=== PATIENT | female | born 1995 | race Caucasian/White ===

== ENCOUNTER 2016-06-26 18:06 | Emergency (ER) | payer OTHER ==
--- NOTE | 2016-06-26 19:59 | ED CLINICAL REPORT ---
Clinical Report - Physicians/Mid Levels [facility] [address] [place] [address] 06/26/2016 18:08 Patient: PAOLO CADET Time Seen: 18:31; initial patient contact, initial documentation, patient care assumed. Arrived- By private vehicle. Historian- patient. HISTORY OF PRESENT ILLNESS Chief Complaint: VOMITING. This started about 2 - 3 days ago and is still present. No recent travel. She has had nausea. She has had mild vomiting. The vomiting has occurred only once. No bilious emesis, feculent emesis, blood-tinged emesis, coffee-grounds emesis or frankly bloody emesis. No unusually dark emesis. No diarrhea, black stools, bloody stools, abdominal pain or constipation. No flank pain, history of possible bad food exposure or change in routine. Has not recently been camping or on antibiotics. She has had contact with a sick family member. Symptoms of the sick contact include vomiting. They have had similar symptoms. The illness is described as mild. (concerned she is , late on period, and home test was neg and another one was pos, and she has breast tenderness that started about the same time). Similar symptoms previously: None. Recent medical care: Not recently seen/assessed. REVIEW OF SYSTEMS No fever, difficulty with urination, dark urine, chest pain or difficulty breathing. Denies current . All systems otherwise negative, except as recorded above. PAST HISTORY Negative. SOCIAL HISTORY Never smoker. No alcohol use or drug use. No recent travel. Is a local resident. FAMILY HISTORY Negative. ADDITIONAL NOTES The nursing notes have been reviewed with agreement regarding the chief complaint, HPI, ROS, PMH and patient medications and allergies. PHYSICAL EXAM Vital Signs: 06/26/2016 18:22 BP: 136/66. HR: 80. RR: 16. O2 saturation: 100%. Temp: 97.9 F. Have been reviewed as normal and appear to be correct. Appearance: Alert. Oriented X3. No acute distress. Eyes: Pupils equal, round and reactive to light. Eyes normal inspection. ENT: Ears normal. Nose normal. Pharynx normal. Neck: Normal inspection. Neck supple. CVS: Normal heart rate and rhythm. Heart sounds normal. Pulses normal. Respiratory: No respiratory distress. Breath sounds normal. Abdomen: Soft and nontender. Bowel sounds normal. No organomegaly. No mass. Back: Normal inspection. Skin: Skin warm and dry. Normal skin color. No rash. Normal skin turgor. Extremities: Extremities exhibit normal ROM. No lower extremity edema. Neuro: Oriented X 3. No motor deficit. No sensory deficit. LABS, X-RAYS, AND EKG Laboratory Tests: UA-Culture if indicated: (CEM: 06/26/2016 18:25) ( MsgRcvd 06/26/2016 18:48) Final results Test Result Flag Units (Reference) URINE COLOR YELLOW URINE APPEARANCE CLEAR URINE GLUCOSE NEGATIVE (NEGATIVE) URINE BILIRUBIN NEGATIVE (NEGATIVE) URINE KETONE TRACE (NEGATIVE) URINE SPECIFIC GRAVITY 1.020 (1.010-1.030) URINE PH 7.0 (5.0-8.0) URINE PROTEIN NEGATIVE (NEGATIVE) URINE UROBILINOGEN 2.0 EU/dL (0.2-1.0) The urobilinogen reagent area may react with interferingsubstances known to react with Estefani's reagent such asp-aminosalicylic acid and sulfonamides. Atypical colorreactions may be obtained in the presence of highconcentrations of p-aminobenzoic acid. The absence ofurobilinogen cannot be determined with this test. URINE NITRITE NEGATIVE (NEGATIVE) URINE BLOOD NEGATIVE (NEGATIVE) URINE LEUK ESTERASE NEGATIVE (NEGATIVE) URINE RBC 0-1 rbc/hpf (0-1) URINE WBC 0-1 wbc/hpf (0-1) URINE EPITHELIAL CELLS 3-5 EPI/hpf (0-5) URINE BACTERIA NONE SEEN (NONE SEEN) URINE COMMENT CULT NOT INDICATED AMORPHOUS CRYSTALS 3+URINE CULTURES ARE SET-UP BASED ON THE FOLLOWING CRITERIA:POSITIVE NITRITEPOSITIVE LEUKOCYTE ESTERASEGREATER THAN 10 WHITE BLOOD CELLSMODERATE (2+) OR GREATER BACTERIA Urine: (CEM: 06/26/2016 18:25) ( MsgRcvd 06/26/2016 18:45) Final results Test Result Flag Units (Reference) URINE POSITIVE CBC w Diff: (CEM: 06/26/2016 18:55) ( MsgRcvd 06/26/2016 19:11) Final results Test Result Flag Units (Reference) WHITE BLOOD COUNT 8.0 K/uL (4.5-11.5) RED BLOOD COUNT 4.52 M/uL (4.00-5.20) HEMOGLOBIN 10.5 L gm/dL (12.0-16.0) HEMATOCRIT 33.6 L % (36.0-46.0) MEAN CELL VOLUME 74 L fL (80-100) MEAN CORPUSCULAR HGB 23 L pg (26-34) MEAN CORPUSCULAR HGB CONC 31 g/dL (31-37) RED CELL DISTRIBUTION WIDTH 19.2 H % (11.6-14.8) PLATELET COUNT 333 K/uL (150-400) NEUTROPHIL % 58.2 % (50-75) LYMPH % 33.4 % (25-40) MONO % 8.0 % (3-14) EOSINOPHIL % 0.4 % (0-4) BASOPHIL % 0 % (0-2) CMP: (CEM: 06/26/2016 18:55) ( MsgRcvd 06/26/2016 19:22) Final results Test Result Flag Units (Reference) GLUCOSE 98 mg/dL (70-110) BUN 13 mg/dL (7-18) CREATININE 0.7 mg/dL (0.6-1.3) Estimated GFR >60 mL/min Estimated GFR- >60 mL/min Note: Persistent reduction over 3 months in eGFR<60 mL/min/1.73 m2 defines CKD. Patients with eGFR values>=60 mL/min/1.73 m2 may also have CKD if evidence ofpersistent proteinuria. Additional information may be foundat www.kidney.org. SODIUM 139 mmol/L (136-145) POTASSIUM 4.1 mmol/L (3.5-5.1) CHLORIDE 105 mmol/L (98-107) CARBON DIOXIDE 25 mmol/L (21-32) CALCIUM 8.8 mg/dL (8.5-10.1) TOTAL PROTEIN 8.0 g/dL (6.4-8.2) ALBUMIN 3.9 g/dL (3.3-5.0) BILIRUBIN, TOTAL 0.8 mg/dL (0.0-1.0) ALKALINE PHOSPHATASE 79 U/L (46-116) AST (SGOT) 12 L U/L (15-37) ALT (SGPT) 23 U/L (12-78) . PROGRESS AND PROCEDURES Patient counseled in person regarding the patient's stable condition, test results and diagnosis. 19:43. Differential Diagnosis: I considered gastritis, peptic ulcer disease, ischemia, gastroesophageal reflux disease, gastroparesis, small bowel obstruction, colonic obstruction, colon cancer, gastroenteritis, cholecystitis, pancreatitis, viral syndrome, enterocolitis, urinary tract infection and hepatitis as a possible cause of vomiting in this patient. This is a partial list of diagnoses considered. Above considerations are based on history, physical exam and laboratory data. Differential diagnosis was discussed with patient. Disposition: Discharged home in good and unchanged condition (19:59). Condition: good and stable. CLINICAL IMPRESSION First trimester ; positive test in emergency department. INSTRUCTIONS Warnings: GENERAL WARNINGS: Return or contact your physician immediately if your condition worsens or changes unexpectedly, if not improving as expected, or if other problems arise. SPECIFICALLY, return if you develop pain in the abdomen, fever, the inability to keep fluids down, blood in vomitus, blood in diarrhea, fainting, lightheadedness or vaginal bleeding. Prescription Medications: Zofran 4 mg: Take 1 orally every six hours as needed for nausea/vomiting. Dispense ten (10). No refills. Substitution is permissible. vitamins: Take 1 orally every day. Dispense thirty (30). No refill. Understanding of the discharge instructions verbalized by patient. Follow-up with: Arsh Praks MD, Obstetrics/Gynecology, , [facility], [address] [place] [address] Follow up in about three days even if well. Call for an appointment. Summary of care provided to patient. (Electronically signed by May Giraldo A.R.N.P. 06/26/2016 22:48)
--- NOTE | 2016-06-26 19:59 | ED ORDER SUMMARY ---
..... Patient: PAOLO CADET OrderSheet [facility] VisitID: [id number] [place] [address] 21y, F Registration Date/Time: 06/26/2016 ORDER SHEET Weight: 89.3 kg (stated) Allergies: No Known Drug Allergy GENERAL ORDERS: UA-Culture if indicated Urgent (18:25 06/26/2016 EInderbitzen R.N. verbal order read back to Satish SU) (Ack 18:32 RKjere) (18:44 EInderbitzen R.N.) Urine Urgent (18:25 06/26/2016 EInderbitzen R.N. verbal order read back to Satish SU) (Ack 18:32 RKjere) (18:44 EInderbitzen R.N.) CBC w Diff Urgent (18:41 06/26/2016 HBivens A.R.N.P.) (Ack 18:46 RKjere) (18:55 LTapper) CMP Urgent (18:41 06/26/2016 HBivens A.R.N.P.) (Ack 18:46 RKaruga) (18:55 LTapper) MEDICATION ORDERS: Zofran ODT PO 4 mg (NOW) (18:41 06/26/2016 HBivens A.R.N.P.) (19:00 EInderbitzen R.N.) IV FLUIDS: ORDER SHEET NOTES: [Electronically signed by Steven Cui R.N. (20:17 06/26/2016)] [Electronically signed by May Giraldo.R.N.P. (22:48 06/26/2016)] [Electronically locked/signed by Steven Cui R.N. (20:17 06/26/2016)]
--- NOTE | 2016-06-26 19:59 | ED ORDER SUMMARY ---
..... Patient: PAOLO CADET OrderSheet [facility] VisitID: [id number] [place] [address] 21y, F Registration Date/Time: 06/26/2016 ORDER SHEET Weight: 89.3 kg (stated) Allergies: No Known Drug Allergy GENERAL ORDERS: UA-Culture if indicated Urgent (18:25 06/26/2016 EInderbitzen R.N. verbal order read back to Satish SU) (Ack 18:32 RKjere) (18:44 EInderbitzen R.N.) Urine Urgent (18:25 06/26/2016 EInderbitzen R.N. verbal order read back to Satish SU) (Ack 18:32 RKjere) (18:44 EInderbitzen R.N.) CBC w Diff Urgent (18:41 06/26/2016 HBivens A.R.N.P.) (Ack 18:46 RKjere) (18:55 LTapper) CMP Urgent (18:41 06/26/2016 HBivens A.R.N.P.) (Ack 18:46 RKaruga) (18:55 LTapper) MEDICATION ORDERS: Zofran ODT PO 4 mg (NOW) (18:41 06/26/2016 HBivens A.R.N.P.) (19:00 EInderbitzen R.N.) IV FLUIDS: ORDER SHEET NOTES: [Electronically signed by Steven Cui R.N. (20:17 06/26/2016)] [Electronically signed by May Giraldo.R.N.P. (22:48 06/26/2016)] [Electronically locked/signed by Steven Cui R.N. (20:17 06/26/2016)]
--- NOTE | 2016-06-26 19:59 | ED NURSING NOTES ---
Clinical Report - Nurses [facility] [place] [address] 06/26/2016 18:08 Patient: PAOLO CADET TRIAGE Triage time 18:19 Jun 26 2016. Acuity: LEVEL 3. Chief Complaint: ABDOMINAL PAIN. 18:22 06/26/16. SEPSIS SCREEN: Sepsis Screen: negative. Negative (no infection suspected/documented). --18:22 [place] Zhong R.N. 18:22 06/26/16. BP: 136/66. HR: 80. RR: 16. O2 saturation: 100%. Temp: 97.9 F. Pain level now 2/10. --18:22 [place] Zhong R.N. Weight: 89.3 kg stated. Height/Length: 64 inches Per Patient. BMI: 33.8. --18:18 Sugar Zhong R.N. Medications None. --18:20 Sugar Zhong R.N. Medication/allergy information source: the patient. --18:22 Sugar Zhong R.N. Allergies No Known Drug Allergy. --18:20 Sugar Zhong R.N. History Arrived by private vehicle. Historian: patient. Accompanied by family. Onset. (2 - 3 days). ( no bleeding. Possibly , Is sexually active, no contraception. has taken a few home tests with both positive and negative results). She has had nausea, vomiting, constipation and abdominal pain. No diarrhea or fever. Treatment JUVENILE DETENTION OFFICER: None. PAST MEDICAL HX: Last normal menstrual period- end of April. Sexual history - sexually active and engages in unprotected sex. No contraception. SOCIAL HX: Never smoker. No alcohol use or drug use. No recent travel. No known contact with a sick individual. ABUSE ASSESSMENT: No report of abuse. SELF HARM ASSESSMENT: A self harm assessment was performed. The patient answered "no" to the question "Have you recently felt down, depressed, or hopeless?", "Have you noticed less interest or pleasure in doing things?", "Do you have thoughts of harming or killing yourself?", "Are you here because you tried to hurt yourself?", "Have you ever tried to hurt yourself before today?", "Have you recently had thoughts about harming or killing others?" and "Do you have any dangerous items in your possession?". FALL RISK ASSESSMENT: Fall risk assessment completed. No fall risk identified. NUTRITIONAL RISK ASSESSMENT: The nutritional risk assessment revealed no deficiencies. FUNCTIONAL ASSESSMENT: Functional assessment: no impairments noted. LEARNING NEEDS ASSESSMENT: The learning needs assessment revealed no barriers. SKIN INTEGRITY ASSESSMENT: Skin integrity risk assessment completed. No skin integrity risk identified. --18:22 Sugar Zhong R.N. PROBLEMS: Weakness. --18:20 Sugar Zhong R.N. ADDITIONAL SURGERIES: no known surgeries. Interventions ID band on patient. --18:22 Sugar Zhong R.N. PHYSICAL ASSESSMENT 18:25 06/26/16. Ambulatory to room. GENERAL / NEURO / PSYCH: Alert. Oriented X 4. HEENT: Mucous membranes are pink. RESPIRATORY: Breath sounds within normal limits. CVS: Capillary refill less than 2 seconds. GI / : Abdomen soft. No rebound tenderness, abdominal distention, guarding or mass present in the abdominal region. No nausea noted. No emesis noted. SKIN: Skin is warm and dry. --18:25 Sugar Zhong R.N. NURSING PROGRESS NOTES 18:19 06/26/16. The initial plan of care for this patient includes an assessment with efforts to address the patient's anxiety; impairment of the gastrointestinal and genitourinary system. This plan of care was discussed with the patient. Patient gowned. Reassurance given. Two patient identifiers checked. Call light placed in reach. Side rails up x 1. Bed placed in lowest position. Brakes of bed on. Patient ready for evaluation. --18:24 [place] Zhong R.N. Checked patient name and birthdate: patient confirmed. Blood samples drawn from the right antecubital space with syringe and 23g butterfly by [employer] per protocol ; labeled in presence of the patient and sent to lab: rainbow set: cardiac enzymes (1st set). --18:56 Arnol Youssef 19:00 06/26/2016 Zofran ODT (Ondansetron) PO Oral Disintegrating Tablets 4 mg given. Allergies verified and confirmed 5 rights. --19:00 Sugar Zhong R.N. DISPOSITION / DISCHARGE Departure time: 2014. Condition at departure: improved. No learning barriers present. Discharge instructions provided and reviewed with the patient. Reviewed warnings. Reviewed medication(s). Treatments reviewed. Reviewed referrals (Dr Parks). The patient was discharged by the nurse practitioner. She was discharged home and accompanied by family. She left the Emergency Department ambulatory and via private vehicle. Family member driving. --20:17 Steven Cui R.N. 20:16 06/26/16. BP: 125/67. HR: 81. RR: 15. O2 saturation: 100%. Pain level now 0/10. --20:17 Steven Cui R.N. Locked/Released at 06/26/2016 20:17 by Steven Cui R.N.
--- NOTE | 2016-06-26 19:59 | ED NURSING NOTES ---
Clinical Report - Nurses [facility] [place] [address] 06/26/2016 18:08 Patient: PAOLO CADET TRIAGE Triage time 18:19 Jun 26 2016. Acuity: LEVEL 3. Chief Complaint: ABDOMINAL PAIN. 18:22 06/26/16. SEPSIS SCREEN: Sepsis Screen: negative. Negative (no infection suspected/documented). --18:22 Sugar Zhong R.N. 18:22 06/26/16. BP: 136/66. HR: 80. RR: 16. O2 saturation: 100%. Temp: 97.9 F. Pain level now 2/10. --18:22 Sugar Zhong R.N. Weight: 89.3 kg stated. Height/Length: 64 inches Per Patient. BMI: 33.8. --18:18 Sugar Zhong R.N. Medications None. --18:20 Sugar Zhong R.N. Medication/allergy information source: the patient. --18:22 Sugar Zhong R.N. Allergies No Known Drug Allergy. --18:20 Sugar Zhong R.N. History Arrived by private vehicle. Historian: patient. Accompanied by family. Onset. (2 - 3 days). ( no bleeding. Possibly , Is sexually active, no contraception. has taken a few home tests with both positive and negative results). She has had nausea, vomiting, constipation and abdominal pain. No diarrhea or fever. Treatment JORDAN WORKER: None. PAST MEDICAL HX: Last normal menstrual period- end of April. Sexual history - sexually active and engages in unprotected sex. No contraception. SOCIAL HX: Never smoker. No alcohol use or drug use. No recent travel. No known contact with a sick individual. ABUSE ASSESSMENT: No report of abuse. SELF HARM ASSESSMENT: A self harm assessment was performed. The patient answered "no" to the question "Have you recently felt down, depressed, or hopeless?", "Have you noticed less interest or pleasure in doing things?", "Do you have thoughts of harming or killing yourself?", "Are you here because you tried to hurt yourself?", "Have you ever tried to hurt yourself before today?", "Have you recently had thoughts about harming or killing others?" and "Do you have any dangerous items in your possession?". FALL RISK ASSESSMENT: Fall risk assessment completed. No fall risk identified. NUTRITIONAL RISK ASSESSMENT: The nutritional risk assessment revealed no deficiencies. FUNCTIONAL ASSESSMENT: Functional assessment: no impairments noted. LEARNING NEEDS ASSESSMENT: The learning needs assessment revealed no barriers. SKIN INTEGRITY ASSESSMENT: Skin integrity risk assessment completed. No skin integrity risk identified. --18:22 Sugar Zhong R.N. PROBLEMS: Weakness. --18:20 Sugar Zhong R.N. ADDITIONAL SURGERIES: no known surgeries. Interventions ID band on patient. --18:22 Sugar Zhong R.N. PHYSICAL ASSESSMENT 18:25 06/26/16. Ambulatory to room. GENERAL / NEURO / PSYCH: Alert. Oriented X 4. HEENT: Mucous membranes are pink. RESPIRATORY: Breath sounds within normal limits. CVS: Capillary refill less than 2 seconds. GI / : Abdomen soft. No rebound tenderness, abdominal distention, guarding or mass present in the abdominal region. No nausea noted. No emesis noted. SKIN: Skin is warm and dry. --18:25 Sugar Zhong R.N. NURSING PROGRESS NOTES 18:19 06/26/16. The initial plan of care for this patient includes an assessment with efforts to address the patient's anxiety; impairment of the gastrointestinal and genitourinary system. This plan of care was discussed with the patient. Patient gowned. Reassurance given. Two patient identifiers checked. Call light placed in reach. Side rails up x 1. Bed placed in lowest position. Brakes of bed on. Patient ready for evaluation. --18:24 Sugar Zhong R.N. Checked patient name and birthdate: patient confirmed. Blood samples drawn from the right antecubital space with syringe and 23g butterfly by [employer] per protocol ; labeled in presence of the patient and sent to lab: rainbow set: cardiac enzymes (1st set). --18:56 Arnol Youssef 19:00 06/26/2016 Zofran ODT (Ondansetron) PO Oral Disintegrating Tablets 4 mg given. Allergies verified and confirmed 5 rights. --19:00 Sugar Zhong R.N. DISPOSITION / DISCHARGE Departure time: 2014. Condition at departure: improved. No learning barriers present. Discharge instructions provided and reviewed with the patient. Reviewed warnings. Reviewed medication(s). Treatments reviewed. Reviewed referrals (Dr Parks). The patient was discharged by the nurse practitioner. She was discharged home and accompanied by family. She left the Emergency Department ambulatory and via private vehicle. Family member driving. --20:17 Steven Cui R.N. 20:16 06/26/16. BP: 125/67. HR: 81. RR: 15. O2 saturation: 100%. Pain level now 0/10. --20:17 Steven Cui R.N. Locked/Released at 06/26/2016 20:17 by Steven Cui R.N.
--- NOTE | 2016-06-26 22:48 | ED DISCHARGE INSTRUCTIONS ---
Patient: PAOLO CADET General Instructions [facility] VisitID: [id number] [place] [address] 21y, F Registration Date/Time: 06/26/2016 First trimester ; positive test in emergency department. INSTRUCTIONS Warnings: GENERAL WARNINGS: Return or contact your physician immediately if your condition worsens or changes unexpectedly, if not improving as expected, or if other problems arise. SPECIFICALLY, return if you develop pain in the abdomen, fever, the inability to keep fluids down, blood in vomitus, blood in diarrhea, fainting, lightheadedness or vaginal bleeding. Prescription Medications: Zofran 4 mg: Take 1 orally every six hours as needed for nausea/vomiting. Dispense ten (10). No refills. Substitution is permissible. vitamins: Take 1 orally every day. Dispense thirty (30). No refill. Understanding of the discharge instructions verbalized by patient. Follow-up with: Arsh Parks MD, Obstetrics/Gynecology, , [facility], [address] [place] [address] Follow up in about three days even if well. Call for an appointment. Summary of care provided to patient. ADDITIONAL INFORMATION Your exam today shows that you are . During , it is normal to develop tender swollen breasts, frequent urination and mild vaginal discharge. During the first three months, nausea is common. Guidelines For A Healthy : To ensure that your baby is born healthy there are certain things that you can do: When you feel tired, you should REST. This is especially true in the later months of . Your body needs more FLUIDS than you may be used to: You should drink 8-10 glasses of juice, milk or water. Eat well-balanced MEALS at regular intervals to supply your body with enough protein. You can expect a total weight gain of about 30 pounds during the . Do not try to diet or lose weight while you are . Because of the extra nutritional needs during , take one VITAMIN daily. Do not take any other MEDICINE during your (prescribed or [id number]-dsc-diltjml) unless your doctor specifically recommends this. Many drugs can have harmful effects on the growing baby. If NAUSEA or VOMITING become a problem, avoid greasy and fried foods. Eat several smaller meals throughout the day rather than three large meals. If you SMOKE, you must stop. The nicotine you breathe in goes right to the baby. Stay away from ALCOHOL, even in moderate amounts. Daily drinking will harm your baby and can cause permanent brain damage. RECREATIONAL DRUGS are harmful, especially cocaine, crack, and heroin. Marijuana should also be avoided. If you were using recreational drugs or prescribed medicine when you found out that you were , talk to your doctor about possible effects on the fetus. Follow Up: Call to arrange for care. This can be provided by your family doctor, an buncher operator ( specialist) or a primary care clinic. Get Prompt Medical Attention if any of the following occur: Vaginal bleeding Moderate or severe abdominal or back pain Excessive vomiting, unable to keep any fluids down for six hours Burning with urination Headache, dizziness or rapid weight gain Your exam today shows that you are . During , it is normal to develop tender swollen breasts, frequent urination and mild vaginal discharge. During the first three months, nausea is common. Guidelines For A Healthy : To ensure that your baby is born healthy there are certain things that you can do: When you feel tired, you should REST. This is especially true in the later months of . Your body needs more FLUIDS than you may be used to: You should drink 8-10 glasses of juice, milk or water. Eat well-balanced MEALS at regular intervals to supply your body with enough protein. You can expect a total weight gain of about 30 pounds during the . Do not try to diet or lose weight while you are . Because of the extra nutritional needs during , take one VITAMIN daily. Do not take any other MEDICINE during your (prescribed or eoib-ike-frknadm) unless your doctor specifically recommends this. Many drugs can have harmful effects on the growing baby. If NAUSEA or VOMITING become a problem, avoid greasy and fried foods. Eat several smaller meals throughout the day rather than three large meals. If you SMOKE, you must stop. The nicotine you breathe in goes right to the baby. Stay away from ALCOHOL, even in moderate amounts. Daily drinking will harm your baby and can cause permanent brain damage. RECREATIONAL DRUGS are harmful, especially cocaine, crack, and heroin. Marijuana should also be avoided. If you were using recreational drugs or prescribed medicine when you found out that you were , talk to your doctor about possible effects on the fetus. Follow Up: Call to arrange for care. This can be provided by your family doctor, an buncher operator ( specialist) or a primary care clinic. Get Prompt Medical Attention if any of the following occur: Vaginal bleeding Moderate or severe abdominal or back pain Excessive vomiting, unable to keep any fluids down for six hours Burning with urination Headache, dizziness or rapid weight gain Ondansetron Oral disintegrating tablet What is this medicine? ONDANSETRON (on JULIA se tayo) is used to treat nausea and vomiting caused by chemotherapy. It is also used to prevent or treat nausea and vomiting after surgery. How should I use this medicine? These tablets are made to dissolve in the mouth. Do not try to push the tablet through the foil backing. With dry hands, peel away the foil backing and gently remove the tablet. Place the tablet in the mouth and allow it to dissolve, then swallow. While you may take these tablets with water, it is not necessary to do so. Talk to your buy boat operator regarding the use of this medicine in children. Special care may be needed. What side effects may I notice from receiving this medicine? Side effects that you should report to your doctor or health acute care nurse practitioner as soon as possible: allergic reactions like skin rash, itching or hives, swelling of the face, lips, or tongue breathing problems dizziness fast or irregular heartbeat feeling faint or lightheaded, falls fever and chills swelling of the hands and feet tightness in the chest Side effects that usually do not require medical attention (report to your doctor or health acute care nurse practitioner if they continue or are bothersome): constipation or diarrhea headache What may interact with this medicine? Do not take this medicine with any of the following medications: -apomorphine -cisapride -dofetilide -dronedarone -pimozide -thioridazine -ziprasidone This medicine may also interact with the following medications: -carbamazepine -phenytoin -rifampicin -tramadol -other medicines that prolong the QT interval (cause an abnormal heart rhythm) What if I miss a dose? If you miss a dose, take it as soon as you can. If it is almost time for your next dose, take only that dose. Do not take double or extra doses. Where should I keep my medicine? Keep out of the reach of children. Store between 2 and 30 degrees C (36 and 86 degrees F). Throw away any unused medicine after the expiration date. What should I tell my health care provider before I take this medicine? They need to know if you have any of these conditions: heart disease history of irregular heartbeat liver disease low levels of magnesium or potassium in the blood an unusual or allergic reaction to ondansetron, granisetron, other medicines, foods, dyes, or preservatives or trying to get breast-feeding What should I watch for while using this medicine? Check with your doctor or health acute care nurse practitioner as soon as you can if you have any sign of an allergic reaction. You have been given the following additional information: , New Dx , New Dx Ondansetron Oral disintegrating tablet (Electronically signed by May Giraldo A.R.N.P. 06/26/2016 22:48)
--- NOTE | 2016-06-26 22:48 | ED DISCHARGE INSTRUCTIONS ---
Patient: PAOLO CADET General Instructions [facility] VisitID: [id number] [place] [address] 21y, F Registration Date/Time: 06/26/2016 First trimester ; positive test in emergency department. INSTRUCTIONS Warnings: GENERAL WARNINGS: Return or contact your physician immediately if your condition worsens or changes unexpectedly, if not improving as expected, or if other problems arise. SPECIFICALLY, return if you develop pain in the abdomen, fever, the inability to keep fluids down, blood in vomitus, blood in diarrhea, fainting, lightheadedness or vaginal bleeding. Prescription Medications: Zofran 4 mg: Take 1 orally every six hours as needed for nausea/vomiting. Dispense ten (10). No refills. Substitution is permissible. vitamins: Take 1 orally every day. Dispense thirty (30). No refill. Understanding of the discharge instructions verbalized by patient. Follow-up with: Arsh Parks MD, Obstetrics/Gynecology, , [facility], [address] [place] [address] Follow up in about three days even if well. Call for an appointment. Summary of care provided to patient. ADDITIONAL INFORMATION Your exam today shows that you are . During , it is normal to develop tender swollen breasts, frequent urination and mild vaginal discharge. During the first three months, nausea is common. Guidelines For A Healthy : To ensure that your baby is born healthy there are certain things that you can do: When you feel tired, you should REST. This is especially true in the later months of . Your body needs more FLUIDS than you may be used to: You should drink 8-10 glasses of juice, milk or water. Eat well-balanced MEALS at regular intervals to supply your body with enough protein. You can expect a total weight gain of about 30 pounds during the . Do not try to diet or lose weight while you are . Because of the extra nutritional needs during , take one VITAMIN daily. Do not take any other MEDICINE during your (prescribed or arer-rut-fluuirq) unless your doctor specifically recommends this. Many drugs can have harmful effects on the growing baby. If NAUSEA or VOMITING become a problem, avoid greasy and fried foods. Eat several smaller meals throughout the day rather than three large meals. If you SMOKE, you must stop. The nicotine you breathe in goes right to the baby. Stay away from ALCOHOL, even in moderate amounts. Daily drinking will harm your baby and can cause permanent brain damage. RECREATIONAL DRUGS are harmful, especially cocaine, crack, and heroin. Marijuana should also be avoided. If you were using recreational drugs or prescribed medicine when you found out that you were , talk to your doctor about possible effects on the fetus. Follow Up: Call to arrange for care. This can be provided by your family doctor, an day treatment clinician/art therapist ( specialist) or a primary care clinic. Get Prompt Medical Attention if any of the following occur: Vaginal bleeding Moderate or severe abdominal or back pain Excessive vomiting, unable to keep any fluids down for six hours Burning with urination Headache, dizziness or rapid weight gain Your exam today shows that you are . During , it is normal to develop tender swollen breasts, frequent urination and mild vaginal discharge. During the first three months, nausea is common. Guidelines For A Healthy : To ensure that your baby is born healthy there are certain things that you can do: When you feel tired, you should REST. This is especially true in the later months of . Your body needs more FLUIDS than you may be used to: You should drink 8-10 glasses of juice, milk or water. Eat well-balanced MEALS at regular intervals to supply your body with enough protein. You can expect a total weight gain of about 30 pounds during the . Do not try to diet or lose weight while you are . Because of the extra nutritional needs during , take one VITAMIN daily. Do not take any other MEDICINE during your (prescribed or eevi-koi-ccpyxpj) unless your doctor specifically recommends this. Many drugs can have harmful effects on the growing baby. If NAUSEA or VOMITING become a problem, avoid greasy and fried foods. Eat several smaller meals throughout the day rather than three large meals. If you SMOKE, you must stop. The nicotine you breathe in goes right to the baby. Stay away from ALCOHOL, even in moderate amounts. Daily drinking will harm your baby and can cause permanent brain damage. RECREATIONAL DRUGS are harmful, especially cocaine, crack, and heroin. Marijuana should also be avoided. If you were using recreational drugs or prescribed medicine when you found out that you were , talk to your doctor about possible effects on the fetus. Follow Up: Call to arrange for care. This can be provided by your family doctor, an day treatment clinician/art therapist ( specialist) or a primary care clinic. Get Prompt Medical Attention if any of the following occur: Vaginal bleeding Moderate or severe abdominal or back pain Excessive vomiting, unable to keep any fluids down for six hours Burning with urination Headache, dizziness or rapid weight gain Ondansetron Oral disintegrating tablet What is this medicine? ONDANSETRON (on JULIA se tayo) is used to treat nausea and vomiting caused by chemotherapy. It is also used to prevent or treat nausea and vomiting after surgery. How should I use this medicine? These tablets are made to dissolve in the mouth. Do not try to push the tablet through the foil backing. With dry hands, peel away the foil backing and gently remove the tablet. Place the tablet in the mouth and allow it to dissolve, then swallow. While you may take these tablets with water, it is not necessary to do so. Talk to your pesticide use medical coordinator regarding the use of this medicine in children. Special care may be needed. What side effects may I notice from receiving this medicine? Side effects that you should report to your doctor or health acute care physical therapist as soon as possible: allergic reactions like skin rash, itching or hives, swelling of the face, lips, or tongue breathing problems dizziness fast or irregular heartbeat feeling faint or lightheaded, falls fever and chills swelling of the hands and feet tightness in the chest Side effects that usually do not require medical attention (report to your doctor or health acute care physical therapist if they continue or are bothersome): constipation or diarrhea headache What may interact with this medicine? Do not take this medicine with any of the following medications: -apomorphine -cisapride -dofetilide -dronedarone -pimozide -thioridazine -ziprasidone This medicine may also interact with the following medications: -carbamazepine -phenytoin -rifampicin -tramadol -other medicines that prolong the QT interval (cause an abnormal heart rhythm) What if I miss a dose? If you miss a dose, take it as soon as you can. If it is almost time for your next dose, take only that dose. Do not take double or extra doses. Where should I keep my medicine? Keep out of the reach of children. Store between 2 and 30 degrees C (36 and 86 degrees F). Throw away any unused medicine after the expiration date. What should I tell my health care provider before I take this medicine? They need to know if you have any of these conditions: heart disease history of irregular heartbeat liver disease low levels of magnesium or potassium in the blood an unusual or allergic reaction to ondansetron, granisetron, other medicines, foods, dyes, or preservatives or trying to get breast-feeding What should I watch for while using this medicine? Check with your doctor or health acute care physical therapist as soon as you can if you have any sign of an allergic reaction. You have been given the following additional information: , New Dx , New Dx Ondansetron Oral disintegrating tablet (Electronically signed by May Giraldo A.R.N.P. 06/26/2016 22:48)
--- NOTE | 2016-06-26 22:49 | ED MED RECONCILIATION SUMMARY ---
Patient: PAOLO CADET Medication Reconciliation Report [facility] VisitID: [id number] [place] [address] 21y, F Registration Date/Time: 06/26/2016 Weight: 89.3 kg Height/Length: 64 in. BMI: 33.8 ALLERGIES: No Known Drug Allergy The patient's Home Medications are listed below: NONE. The source(s) of the original Home Medication information: patient The following Medications were given to the patient in the Emergency Department: Zofran ODT [PO] PO 4 mg, administered: 06/26/2016 7:00:00 PM The following Medications were prescribed to the patient: Zofran 4 mg: Take 1 orally every six hours as needed for nausea/vomiting. Dispense ten (10). No refills. Substitution is permissible. -- May Giraldo, Keron.R.N.P. vitamins: Take 1 orally every day. Dispense thirty (30). No refill. -- May Giraldo, A.R.N.P.
--- NOTE | 2016-06-26 22:49 | ED MAR SUMMARY ---
..... Medication Administration Record [facility] [address] [place] [address] Patient: PAOLO CADET Visit ID: [id number] 21y, F Weight: 89.3 kg Height/Length: 64 in BMI: 33.8 ALLERGIES: No Known Drug Allergy Given 19:00 06/26/2016 Sugar Zhong R.N. Medication Administered: ZOFRAN ODT [PO] (ONDANSETRON), Dose: 4 mg Oral Disintegrating Tablets PO. Medication Ordered: Zofran ODT PO 4 mg (NOW).
--- NOTE | 2016-06-26 22:49 | ED MED RECONCILIATION SUMMARY ---
Patient: PAOLO CADET Medication Reconciliation Report [facility] VisitID: [id number] [place] [address] 21y, F Registration Date/Time: 06/26/2016 Weight: 89.3 kg Height/Length: 64 in. BMI: 33.8 ALLERGIES: No Known Drug Allergy The patient's Home Medications are listed below: NONE. The source(s) of the original Home Medication information: patient The following Medications were given to the patient in the Emergency Department: Zofran ODT [PO] PO 4 mg, administered: 06/26/2016 7:00:00 PM The following Medications were prescribed to the patient: Zofran 4 mg: Take 1 orally every six hours as needed for nausea/vomiting. Dispense ten (10). No refills. Substitution is permissible. -- May Giraldo, Keron.R.N.P. vitamins: Take 1 orally every day. Dispense thirty (30). No refill. -- May Giraldo, A.R.N.P.
--- NOTE | 2016-06-26 22:49 | ED MAR SUMMARY ---
..... Medication Administration Record [facility] [address] [place] [address] Patient: PAOLO CADET Visit ID: [id number] 21y, F Weight: 89.3 kg Height/Length: 64 in BMI: 33.8 ALLERGIES: No Known Drug Allergy Given 19:00 06/26/2016 Sugar Zhong R.N. Medication Administered: ZOFRAN ODT [PO] (ONDANSETRON), Dose: 4 mg Oral Disintegrating Tablets PO. Medication Ordered: Zofran ODT PO 4 mg (NOW).
== END 2016-06-26 20:15 | disposition home or self-care (01) ==
LOC: ED SRH 18:06
DX: O21.9 Vomiting of pregnancy, unspecified (principal); Z3A.00 Weeks of gestation of pregnancy not specified
CPT/HCPCS: 90004; 90074; 90100; 93070; 95059

== ENCOUNTER → 2016-07-30 | Outpatient (CLI) | payer OTHER | LOC: LAB SRH 14:59 | DX: Z32.01 Encounter for pregnancy test, result positive (principal) | CPT/HCPCS: 90004; 90074; 90078; 90261; 90364; 90599; 90600; 90605; 90606; 90710; 90851; 92863; 93140; 98480; 99777 ==

== ENCOUNTER 2016-10-08 13:58 | Outpatient (CLI) | payer OTHER ==
--- NOTE | 2016-10-08 15:15 | DIAGNOSTIC IMAGING REPORT ---
PROCEDURE: US OB DETAILED ANATOMIC INDICATION: ANATOMY TECHNIQUE: Ocampo scale, color, and spectral Doppler images of the second trimester gravid uterus were obtained. COMPARISON: None. FINDINGS: A single living intrauterine is in breech presentation. There is regular cardiac activity at a rate of 150 beats per minute. The placenta is posterior and fundal and away from the internal cervical os. The cervix is closed measuring approximately 3.6 cm in length. The amniotic fluid volume is subjectively normal. Biparietal diameter 3.9 cm at 17 weeks and 6 days Head circumference 15.3 cm of 18 weeks and 2-day Abdominal circumference 13.4 cm at 18 weeks and 6-day Femur length 2.8 cm of 18 weeks and 4-day Head to abdominal circumference ratio and femur length to abdominal circumference ratios are normal. Estimated weight 253 g Composite gestational age 18 weeks and 3 days, DEVON 03/08/2017 There was visualization of a number of normal structures including the intracranial contents, facial features, nuchal region, spine, four-chamber heart and outflow tracts to the extent that could be visualized, diaphragm, fluid-filled stomach, kidneys, abdomen, urinary bladder, upper and lower extremities, and genitals. A three-vessel umbilical cord, normal and placental cord insertion sites were seen. IMPRESSION: 1. Single living intrauterine with a composite gestational age of 18 weeks and 3 days, DEVON 03/08/2017 2. Symmetric and normal anatomy.
== END 2016-10-08 23:00 ==
LOC: US SRH 13:58
DX: Z34.02 Encounter for supervision of normal first pregnancy, second trimester (principal); Z3A.18 18 weeks gestation of pregnancy

== ENCOUNTER 2016-10-28 10:59 | Outpatient (CLI) | payer OTHER | END 2016-10-28 23:00 | LOC: LAB SRH 10:59 | DX: Z34.02 Encounter for supervision of normal first pregnancy, second trimester (principal) | CPT/HCPCS: 90039; 90074 ==

== ENCOUNTER 2016-11-07 19:17 | Outpatient (CLI) | payer OTHER | END 2016-11-07 20:30 | disposition home or self-care (01) | LOC: OBC SRH 19:17 → OB SRH 19:19 → OBC SRH 20:30 | PROC: 4A0HXCZ Measurement of Products of Conception, Cardiac Rate, External Approach (ICD-10-PCS; principal; 2016-11-07) | DX: O47.02 False labor before 37 completed weeks of gestation, second trimester (principal); O99.89 Other specified diseases and conditions complicating pregnancy, childbirth and the puerperium; E86.0 Dehydration; Z3A.23 23 weeks gestation of pregnancy | CPT/HCPCS: 40003 ==